=== PATIENT | female | born 1985 | race Two or more races ===

== ENCOUNTER 2017-07-16 11:28 | Emergency (ER) | payer MEDICAID ==
[~2017-07-16] VITALS: Ht 160 cm; Wt 63.0 kg
[2017-07-16 11:29] VITALS: BP 101/69
[2017-07-16 12:58] LABS: APPEARANCE,URINE CLEAR; BILIRUBIN, URINE NEGATIVE (NEGATIVE); COLOR,URINE PALE YELLOW; GLUCOSE, URINE (UA) NEGATIVE (NEGATIVE); KETONES,URINE 1+ (NEGATIVE); LEUKOCYTE ESTERASE ,URINE NEGATIVE (NEGATIVE); NITRITE,URINE NEGATIVE (NEGATIVE); PH,URINE 6.5 (4.5-8.0); PROTEIN,URINE 2+ (NEGATIVE); UROBILINOGEN,URINE NORMAL MG/DL (0.0-1.0)
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
[2017-07-16 14:08] VITALS: BP 108/69
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
[2017-07-16] MEDS ORDERED: IBUPROFEN800 MG ORAL (14:20)
[2017-07-16 14:25] VITALS: BP 101/69
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
== END 2017-07-16 14:34 | disposition home or self-care (01) ==
LOC: EDBD 11:28 → EMR 12:01
DX: S02.2XXA Fracture of nasal bones, initial encounter for closed fracture (principal); S00.83XA Contusion of other part of head, initial encounter; S00.431A Contusion of right ear, initial encounter; S10.93XA Contusion of unspecified part of neck, initial encounter; S20.221A Contusion of right back wall of thorax, initial encounter; S40.011A Contusion of right shoulder, initial encounter; Y04.2XXA Assault by strike against or bumped into by another person, initial encounter; Y92.009 Unspecified place in unspecified non-institutional (private) residence as the place of occurrence of the external cause
CPT/HCPCS: 70450; 70486; 81001; 81025; 99284